=== PATIENT | female | born 1990 | race Caucasian/White ===

== ENCOUNTER 2019-01-07 08:47 | Emergency (ER) | payer BC, MEDICAID ==
[~2019-01-07] VITALS: Ht 160 cm; Wt 56.7 kg
--- NOTE | 2019-01-07 08:58 | NUR ---
PT BIB SELF C/O R HIP PAIN, PT DENIES INJURY, PT IS AAOX4, NOT IN RESPIRATORY DISTRESS, V/S STABLE, KEPT RESTED AND COMFORTABLE, WILL CONTINUE TO MONITOR. AWITING ER MD FOR EVAL.
--- NOTE | 2019-01-07 09:10 | NUR ---
AT BEDSIDE FOR EVAL.
[2019-01-07] MEDS ORDERED: MORPHINE SULFATE INJ 4 MG/ML DISP.SYRIN ONE (09:24)
[2019-01-07] MEDS ORDERED: ONDANSETRON 4 MG TAB.RAPDIS ONE (09:25)
--- NOTE | 2019-01-07 09:25 | NUR ---
FRAME RUNNER AT BEDSIDE FOR XRAY.
[2019-01-07] MEDS ORDERED: MORPHINE SULFATE INJ 2 MG/ML DISP.SYRIN IM ONE (09:30)
[2019-01-07] MEDS ORDERED: ONDANSETRON 4 MG TAB.RAPDIS PO ONE (09:30)
--- NOTE | 2019-01-07 09:35 | NUR ---
TECH AT BEDSIDE FOR DUPLEX SCAN.
--- NOTE | 2019-01-07 10:22 | NUR ---
Patient discharged to home in stable condition. Written and verbal after care instructions given. Patient verbalizes understanding of instruction.
[2019-01-07 10:24] VITALS: BP 119/82
== END 2019-01-07 10:26 | disposition home or self-care (01) ==
LOC: ER 08:49
DX: M25.552 Pain in left hip (principal); R55 Syncope and collapse; Z98.890 Other specified postprocedural states; Z88.8 Allergy status to other drugs, medicaments and biological substances
CPT/HCPCS: 73503; 93971; 96372; 99284; J2270; Q0162; 73502

== ENCOUNTER 2022-05-16 07:32 | Emergency (ER) | payer OTHER ==
[~2022-05-16] VITALS: Ht 157.5 cm; Wt 68.0 kg
--- NOTE | 2022-05-16 07:33 | NUR ---
BIB FRIEND C/O DIZZINESS, HEADACHE, AND NAUSEA THAT STARTED THIS MORNING AFTER WAKING UP. PT STATED SHE IS HAVING TROUBLE WALKING, ABLE TO AMBULATE ON HER OWN. ATTACHED TO MONITOR, VITALSD ARE WITHIN NORMAL LIMITS. AWAITING MD ARNOLD.
--- NOTE | 2022-05-16 07:35 | NUR ---
MRECEVED PT 31YRS FEMALE WALKING IN C/O DIZZINESS STRTED THIS MORNING AWAKE AND ALERT
--- NOTE | 2022-05-16 08:10 | NUR ---
UA SENT TO LAB
[2022-05-16] MEDS ORDERED: ONDANSETRON HCL/PF 4 MG/2 ML VIAL ONE (08:12)
[2022-05-16] MEDS ORDERED: KETOROLAC TROMETHAMINE 15 MG/ML VIAL ONE (08:12)
--- NOTE | 2022-05-16 08:20 | NUR ---
INSERTEDANGO CATHETER G 20 ON RT AC BLOOD DROW AND SENT TOLAB
[2022-05-16] MEDS: IV NS 0.9% 1,000 ML BAG IV ONE (08:35)
[2022-05-16] MEDS: ONDANSETRON HCL/PF - ER 4 MG/2 ML VIAL IV ONE (08:37)
[2022-05-16 08:38] LABS: BASOPHILS % (AUTO) 0.3 % (0.0-2.0); EOSINOPHILS % (AUTO) 1.5 % (0.0-6.0); HEMATOCRIT 41 % (33-45); HEMOGLOBIN 13.5 g/dL (11.5-14.8); LYMPHOCYTES # (AUTO) 1.2 K/uL (0.8-4.8); LYMPHOCYTES % (AUTO) 26.5 % (20.0-44.0); MEAN CORPUSCULAR HGB CONC 33 g/dl (31.0-36.0); MEAN CORPUSCULAR VOLUME 90 fL (82-100); MONOCYTES # (AUTO) 0.3 K/uL (0.1-1.30); MONOCYTES % (AUTO) 7.4 % (2.0-12.0); NEUTROPHILS # (AUTO) 2.9 K/uL (1.8-8.9); NEUTROPHILS % (AUTO) 64.3 % (43.0-81.0); PLATELET COUNT (AUTO) 248 K/uL (150-450); RED BLOOD CELL COUNT(AUTO) 4.58 MIL/uL (4.0-5.2); WHITE BLOOD COUNT (AUTO) 4.5 K/uL (4.3-11.0)
[2022-05-16] MEDS: KETOROLAC TROMETHAMINE INJ 30 MG/ML VIAL IV ONE (08:38)
[2022-05-16 08:53] LABS: ALBUMIN 3.7 g/dL (3.4-5.0); BILIRUBIN,DIRECT 0.1 mg/dL (0.0-0.2); BILIRUBIN,TOTAL 0.4 mg/dL (0.2-1.0); CREATININE 0.9 mg/dL (0.6-1.3); POTASSIUM 3.7 mmol/L (3.5-5.1); TOTAL PROTEIN, SERUM 7.4 g/dL (6.4-8.2)
[2022-05-16 09:16] LABS: BILIRUBIN,URINE NEGATIVE (NEGATIVE); COLOR,URINE YELLOW (YELLOW); LEUKOCYTE ESTERASE ,URINE NEGATIVE (NEGATIVE); NITRITE, URINE NEGATIVE (NEGATIVE); PH,URINE 6.5 (5.0-8.0); PROTEIN,URINE NEGATIVE (NEGATIVE); UGLUCOSE NEGATIVE (NEGATIVE); UROBILINOGEN,URINE 0.2 EU/dL (0.2)
[2022-05-16] MEDS ORDERED: ONDA4TAB5 PO (09:47)
[2022-05-16] MEDS ORDERED: IBUP-1955 PO (09:47)
--- NOTE | 2022-05-16 10:08 | NUR ---
Patient discharged to home in stable condition. Written and verbal after care instructions given. Patient verbalizes understanding of instruction.IV removed. Catheter intact and site benign. Pressure and 4x4 applied to site. No bleeding noted.
[2022-05-16 10:09] VITALS: BP 114/79
== END 2022-05-16 10:10 | disposition home or self-care (01) ==
LOC: ER 07:32
DX: R42 Dizziness and giddiness (principal); R51.9 Headache, unspecified; M79.7 Fibromyalgia; Z88.8 Allergy status to other drugs, medicaments and biological substances; Z79.899 Other long term (current) drug therapy
CPT/HCPCS: 99284; 96374; 96361; 96375; 93005; 85025; 80048; 80076; 84703; 81003; 36415; J2405; J7030; J1885